=== PATIENT | male | born 1960 | race Caucasian/White ===

== ENCOUNTER → 2023-07-07 12:44 | Outpatient (REF) | payer OTHER, SELFPAY | LOC: RAD 12:44 | PROVIDERS: ATTENDING PHYSICIAN Physician Assistant Medical | DX: J40 Bronchitis, not specified as acute or chronic (principal) | CPT/HCPCS: 71046 ==

== ENCOUNTER → 2024-04-23 14:03 | Outpatient (REF) | payer OTHER, SELFPAY | LOC: DHSLP 14:03 | PROVIDERS: ATTENDING PHYSICIAN Internal Medicine Critical Care Medicine; FAMILY PHYSICIAN Family Medicine | DX: G47.33 Obstructive sleep apnea (adult) (pediatric) (principal) | CPT/HCPCS: 95800 ==